=== PATIENT | female | born 1990 | race African-American/Black ===

== ENCOUNTER 2016-08-20 21:43 | Emergency (ER) | payer SELFPAY ==
[2016-08-20] MEDS ORDERED: Sodium Chloride 0.9% 1,000 ML ONE (21:55)
[2016-08-20] MEDS ORDERED: Prochlorperazine 10 MG/2 ML VIAL ONE (21:55)
[2016-08-20] MEDS ORDERED: SUMAtriptan Succinate 6 MG/0.5 ML VIAL ONE (22:07)
== END 2016-08-20 22:28 | disposition left against medical advice (07) ==
LOC: NAV ERS 21:43
DX: Z53.21 Procedure and treatment not carried out due to patient leaving prior to being seen by health care provider (principal)
CPT/HCPCS: 96372; 96374; J0780; J3030; J7050

== ENCOUNTER 2016-10-05 14:55 | Emergency (ER) | payer SELFPAY ==
[2016-10-05] MEDS ORDERED: Ketorolac Tromethamine 30 MG/ML VIAL ONE (15:35)
== END 2016-10-05 15:45 | disposition home or self-care (01) ==
LOC: NAV ERS 14:55
DX: K04.7 Periapical abscess without sinus (principal); J45.909 Unspecified asthma, uncomplicated
CPT/HCPCS: 96372; J1885

== ENCOUNTER 2016-12-21 21:14 | Emergency (ER) | payer SELFPAY ==
[2016-12-21] MEDS ORDERED: AMOXicillin 250 MG CAP ONE (21:45)
[2016-12-21] MEDS ORDERED: Acetaminophen/Codeine 30-300mg Tablet ONE (21:49)
== END 2016-12-21 22:19 | disposition home or self-care (01) ==
LOC: NAV ERS 21:14
DX: K02.9 Dental caries, unspecified (principal); J45.909 Unspecified asthma, uncomplicated
CPT/HCPCS: 99282

== ENCOUNTER 2017-02-22 05:19 | Emergency (ER) | payer SELFPAY ==
[2017-02-22] MEDS ORDERED: Sodium Chloride 0.9% 1,000 ML ONE (05:38)
[2017-02-22] MEDS ORDERED: Metoclopramide HCl 10 MG/2 ML VIAL ONE ×2 (05:38→05:51)
[2017-02-22] MEDS ORDERED: diphenhydrAMINE 50 MG/ML VIAL ONE (05:38)
[2017-02-22] MEDS ORDERED: SUMAtriptan Succinate 6 MG/0.5 ML VIAL ONE (05:40)
[2017-02-22] MEDS ORDERED: Sodium Chloride 0.9% 100 ML ONE (05:51)
[2017-02-22] MEDS ORDERED: Ketorolac Tromethamine 30 MG/ML VIAL ONE (05:51)
== END 2017-02-22 06:30 | disposition home or self-care (01) ==
LOC: NAV ERS 05:19
DX: G43.909 Migraine, unspecified, not intractable, without status migrainosus (principal); J45.909 Unspecified asthma, uncomplicated
CPT/HCPCS: 96365; 96375; J1200; J1885; J2765; J3030; J7050

== ENCOUNTER 2020-03-28 19:02 | Emergency (ER) | payer SELFPAY ==
[2020-03-28] MEDS ORDERED: HYDROcodone/Acetaminophen 5/325 mg Tablet ONE (19:33)
[2020-03-28] MEDS ORDERED: Penicillin V Potassium 250 MG TAB ONE (19:33)
== END 2020-03-28 19:42 | disposition home or self-care (01) ==
LOC: NAV ERS 19:02
DX: K04.4 Acute apical periodontitis of pulpal origin (principal); J45.909 Unspecified asthma, uncomplicated; Z79.51 Long term (current) use of inhaled steroids
CPT/HCPCS: 99282

== ENCOUNTER 2022-03-19 01:42 | Emergency (ER) | payer MEDICAID, OTHER ==
[2022-03-19] MEDS ORDERED: traMADol HCl 50 MG TAB ONE (02:15)
[2022-03-19] MEDS ORDERED: Cephalexin 250 MG CAP ONE (02:16)
== END 2022-03-19 02:20 | disposition home or self-care (01) ==
LOC: NAV ERS 01:42
DX: K04.7 Periapical abscess without sinus (principal); K05.00 Acute gingivitis, plaque induced
CPT/HCPCS: 99282

== ENCOUNTER 2023-10-26 20:22 | Emergency (ER) | payer MEDICAID, OTHER | END 2023-10-26 21:20 | disposition home or self-care (01) | LOC: NAV ERS 20:22 | DX: S71.151A Open bite, right thigh, initial encounter (principal); W54.0XXA Bitten by dog, initial encounter | CPT/HCPCS: 99283 ==